=== PATIENT | female | born 1955 | race Caucasian/White ===

== ENCOUNTER 2018-01-14 13:44 | Emergency (ER) | payer OTHER ==
[~2018-01-14] VITALS: Ht 167.6 cm; Wt 70.3 kg
[2018-01-14] MEDS ORDERED: BACTRIM DS TAB1 EACH PO (13:57)
[2018-01-14] MEDS ORDERED: DOXYCYCLINE HY100 MG PO (14:41)
[2018-01-15] MEDS ORDERED: TYLENOL EXTRA500 MG PO (11:27)
[2018-01-15] MEDS ORDERED: ADVIL LIQUI-GE200 MG PO (11:28)
== END 2018-01-14 16:06 | disposition home or self-care (01) ==
LOC: ED 13:44
DX: L73.2 Hidradenitis suppurativa (principal); Z79.899 Other long term (current) drug therapy
CPT/HCPCS: 96374; 99283; J3370

== ENCOUNTER 2018-01-15 11:10 | Emergency (ER) | payer OTHER ==
[~2018-01-15] VITALS: Ht 167.6 cm; Wt 70.3 kg
[~2018-01-15 11:10] MED LIST: BACTRIM DS TAB1 EACH PO; DOXYCYCLINE HY100 MG PO
[2018-01-15] MEDS ORDERED: TYLENOL EXTRA500 MG PO (11:27)
[2018-01-15] MEDS ORDERED: ADVIL LIQUI-GE200 MG PO (11:28)
== END 2018-01-15 15:15 | disposition home or self-care (01) ==
LOC: ED 11:10
DX: L03.111 Cellulitis of right axilla (principal)
CPT/HCPCS: 36415; 80048; 96365; 99282; J3370

== ENCOUNTER 2018-01-17 16:19 | Emergency (ER) | payer OTHER ==
[~2018-01-17] VITALS: Ht 167.6 cm; Wt 70.3 kg
[~2018-01-17 16:19] MED LIST changes: +ADVIL LIQUI-GE200 MG PO; +TYLENOL EXTRA500 MG PO
--- NOTE | 2018-01-17 17:12 | NUR ---
Patient to ED for re-evaluation of axilla abscess. If ED physician has patient continue vancomycin, a vancomycin trough needs to be ordered and drawn. Technical Support Technician will call on-call pharmacist, Mandi, , with trough results, for continued dosing
== END 2018-01-17 20:23 | disposition home or self-care (01) ==
LOC: ED 16:19
DX: L02.411 Cutaneous abscess of right axilla (principal)
CPT/HCPCS: 10060; 96374; 96376; 99282; J1170

== ENCOUNTER 2022-04-27 15:05 | Emergency (ER) | payer OTHER ==
[~2022-04-27] VITALS: Ht 167.6 cm; Wt 71.2 kg
[~2022-04-27 15:05] MED LIST changes: +ATORVASTATIN CA10 MG PO; +NORCO 5-325 TA1 EACH PO
[2022-04-27] MEDS ORDERED: CLEOCIN HCL300 MG PO (16:29)
== END 2022-04-27 17:20 | disposition home or self-care (01) ==
LOC: ED 15:05
DX: L03.211 Cellulitis of face (principal); Z88.8 Allergy status to other drugs, medicaments and biological substances
CPT/HCPCS: 36415; 80048; 85025

== ENCOUNTER 2022-04-29 07:58 | Inpatient (IN) | payer OTHER ==
[~2022-04-29] VITALS: Ht 167.6 cm; Wt 72.1 kg
[~2022-04-29 07:58] MED LIST changes: +CLEOCIN HCL300 MG PO
--- OUTSIDE RECORDS SUMMARY | 2022-04-29 08:00 | XMS ---
PreManage Notification: [employer] [employer] Security Parent Trainer Events No recent Security Events currently on file CRITERIA MET - [facility] - 2 Visits in 30 Days CARE PROVIDERS There are no care providers on record at this time. Gustavo has no Care Guidelines for this patient. Vladimir VISIT COUNT (12 MO.) [address] [facility] TOTAL 2 NOTE: Visits indicate total known visits. ED/[facility] VISIT TRACKING (12 MO.) 04/29/2022 07:59 [facility] [place] TYPE: Emergency COMPLAINT: - FACIAL SWELLING 04/27/2022 15:05 [facility] [place] TYPE: Emergency COMPLAINT: - SWOLLEN BODY PART DIAGNOSES: - Cellulitis of face - Localized swelling, mass and lump, head - Allergy status to other drugs, medicaments and biological substances INPATIENT VISIT TRACKING (12 MO.) No inpatient visits to display in this time frame [id number]
--- NOTE | 2022-04-29 12:00 | NUR ---
THIS RN IN TO SEE PATIENT. GANGA FOOD SUPERVISOR HAS CHECKED PATIENT IN AND GOT HER SETTLED. PATIENT ADMIT ASSESSMENT COMPLETE. ASSESSMENT BEGNIGN EXCEPT FOR PATIENT'S FACIAL SWELLING AND REDNESS. PATIENT DENIES PAIN AND NAUSEA. IV INFUSING WNL. PATIENT'S LUNCH HAS BEEN ORDERED. PATIENT INDEPENDENT IN THE ROOM. CALL LIGHT IN REACH. PATIENT DENIES ANY OTHER CARE NEEDS AT THIS TIME. CALL LIGHT IS IN REACH.
[2022-04-29] MEDS ORDERED: DAILY VITE1 EAC1 PO (13:37)
[2022-04-29] MEDS ORDERED: FISH OIL 1,0001 EAC2 PO (13:37)
[2022-04-29] MEDS ORDERED: VITAMIN B-121000 MCG PO (13:38)
[2022-04-29] MEDS ORDERED: VITAMIN D325 MCG PO (13:38)
--- NOTE | 2022-04-29 13:39 | NUR ---
MED REC COMPLETE
--- NOTE | 2022-04-29 14:32 | NUR ---
PT ALERT, ORIENTED AND JUST FINISHING UP A CALL. PT IS PLEASANT, FAMILIAR TO ME. ND HAS HAD PREVIOUS ISSUE WITH CELLULITIS. GAVE ENCOURAGEMENT, G.POST AND BLESSING. AYANNA YU
--- NOTE | 2022-04-29 14:47 | NUR ---
THIS RN IN TO SEE PATIENT AND AFTERNOON ASSESMENT COMPLETE. PATIENT'S FACIAL CONDITION REMAINS UNCHANGED, BUT PATIENT DENIES PAIN AND NAUSEA. PATIENT INDEPENDENT IN ROOM AND VS ARE STABLE. PATIENT SAID SHE ATE VERY WELL FOR LUNCH AND IS OING TO TRY AND TAKE A NAP. CALL LIGHT IN REACH AND PATIENT DENIES ANY CARE NEEDS AT THIS TIME.
--- NOTE | 2022-04-29 16:10 | NUR ---
PATIENT JUS HAD SOME ROBERTSON DELIVERED TO HER. PATIENT HAS NO OTHER CARE NEEDS AT THIS TIME. CALL LIGHT IS IN REACH.
--- NOTE | 2022-04-29 17:04 | NUR ---
THIS RN IN TO CHECK ON PATIENT AND SHE IS BUSY ON HER PHONE AND WATCHING TV. PATIENT DENIES ANY CARE NEEDS AT THIS TIME. THIS RN DUMPED AND RECORDED THE URINE IN THE BATHROOM. PATIENT HAS TWO VISITIORS ARRIVING TO VISIT. PATIENT DENIES ANY CARE NEEDS AT THIS TIME AND IS AWAITING DINNER TO ARRIVE. CALL LIGHT IS IN REACH.
--- NOTE | 2022-04-29 19:29 | NUR ---
RECEIVED REPORT FROM DAY SHIFT RN. PATIENT IS RESTING IN BED. NO NEEDS AT THIS TIME. CALL LIGHT IN REACH.
--- NOTE | 2022-04-29 22:12 | NUR ---
PATIENT ASSESMENT COMPLETED. PATIENTS VITALS TAKEN AND RECORDED. INTKAE AND OUPUT RECORDED. PM MEDS GIVEN PER ORDER. PATIENT DENIES ANY PAIN IN HER FACIAL AREA ONLY MILD DISCOMFORT. PATIENT PROVIDED LOTION FOR FACE AND A COOL RAG. IV INFUSING PER ORDER. NO FURTHER NEEDS NOTED. CALL LIGHT IN REACH.
--- NOTE | 2022-04-30 00:22 | NUR ---
PATIENT GIVEN PRN SLEEP AID PER ORDER AND Pt REQUEST. PATIENT IS RESTING IN BED. IV INFUSING PER ORDER. NO FURTHER NEEDS NOTED. CALL LIGHT IN REACH.
--- NOTE | 2022-04-30 01:28 | NUR ---
PATIENT IS RESTING IN BED. VITALS TAKEN AND RECORDED. INTAKE AND OUTPUT RECORDED. PATIENT DENIES ANY PAIN. NO NEEDS NOTED. CALL LIGHT IN REACH. IV INFUSING PER ORDER.
--- NOTE | 2022-04-30 03:33 | NUR ---
PATIENT IS RESTING IN BED WITH EYES CLOSED, RR 17. CALL LIGHT IN REACH.
--- NOTE | 2022-04-30 05:26 | NUR ---
PATIENTS VITALS TAKEN AND RECORDED. INTAKE AND OUTPUT RECORDED. PATIENT DENIES ANY PAIN. IV INFUSING PER ORDER. PATIENT STATED "I FEEL LIKE THE SWELLING IN MY FACE IS BETTER". PATIENT CONTINUES TO HAVE REDDENED AREA UNDER BOTH EYES AND FROM THE TIP OF THE NOSE UP TO IN BETWEEN HER EYES. PATIENT PROVIDED WITH FRESH ICE WATER. NO FURTHER NEEDS NOTED. CALL LIGHT IN REACH.
--- NOTE | 2022-04-30 07:25 | NUR ---
HANDOFF REPORT RECEIVED FROM WEB OPERATIONS SPECIALIST RN.
--- NOTE | 2022-04-30 08:05 | NUR ---
PT UPRIGHT IN BED. WARM WASH CLOTH PROVIDED. ICE WATER REFRESHED. NO NEEDS AT THIS TIME. CALL LIGHT WITHIN REACH.
--- NOTE | 2022-04-30 09:40 | NUR ---
PT RESTING IN BED. PT RATES PAIN 0/10, DOES STATE SHE HAS SOME DISCOMFORT IN FACE, DENIES NEED FOR PAIN MEDICATION. PT ON ROOM AIR, LUNG SOUNDS CLEAR. PT TOLERATING REGULAR DIET, GOOD APPETITE. CMS INTACT, WITHOUT LE EDEMA. FACIAL SWELLING AND REDNESS PRESENT, SOME DRY PEELING SKIN AROUND NARES. PT INDEPENDENT IN ROOM. VOIDING QS. IV VANCO INFUSION STARTED. PT APPLIED BACTROBAN AND COMPLETED CHLOREHEXIDINE SWISH AND SPIT. PT DENIES OTHER NEEDS AT THIS TIME. DISCUSSED PLAN FOR PICC LINE, PT HOPING TO DISCHARGE LATER TODAY IF POSSIBLE, DISCUSSED NEED FOR ANTIBIOTICS THIS EVENING AND VANCO TROUGH TOMORROW MORNING.
--- NOTE | 2022-04-30 10:00 | NUR ---
Attempted to see pt on, staff in room. Will return later.
--- NOTE | 2022-04-30 10:40 | NUR ---
BEGAN VISITING WITH PT AND AUBRIE QUIROGA FROM [place] CAME TO VISIT WITH PT REGARDING HER CARE. WILL CHECK BACK
--- NOTE | 2022-04-30 11:52 | NUR ---
Received orders for pt to have OP antibiotics. Called DS and scheduled for tomorrow at 9 pm. Printed face sheet, ER note, H&P and hand delivered to Connie in DS. Miles ALFRED charge updated and will tell pt to return to the hospital tomorrow night at 9 pm for her first OP dose.
--- NOTE | 2022-04-30 13:36 | NUR ---
PT RESTING IN BED. VITALS AND IS AND OS COMPLETE. ICE WATER REFRESHED. NO FURTHER NEEDS. CALL LIGHT WITHIN REACH.
--- NOTE | 2022-04-30 13:48 | NUR ---
PT HAD UNISOM TABLET AT BEDSIDE, PLACED IN SAMPLE CUP AND GIVEN TO PHARMACIST CHEMO FOR VERIFICATION/ LABELING. PT VISITING WITH PIANO TEACHER.
--- NOTE | 2022-04-30 14:37 | NUR ---
PT ALERT, ORIENTED AND SITTING UP IN BED WORKING ON COMPUTER. VISITED WITH PT ABOUT HER INFECTIONS, DISCUSSED HOW SHE IS DEALING WITH IT AND VISITED ABOUT STRESS IN PT'S LIFE. PT BELIEVES SHE NEEDS TO MAKE SOME DECISIONS, GAVE HER ENCOURAGEMENT AND SUPPORT. PT REQUESTED PRAYER AND ANOTHER G.POST.
--- NOTE | 2022-04-30 15:10 | NUR ---
PT RESTING IN BED. NEW BAG OF NS HANGING AT 75ML/HR. PT DENIES NEEDS.
--- NOTE | 2022-04-30 17:32 | NUR ---
Spoke with pt and she states she remains in [place] in her house. No steps and no needs. Adult children will assist her as needed. OP IV antibiotics scheduled with DS to start tomorrow at 1930. Chart and order hand delivered. Pt plans on dc to home tomorrow, no needs.
--- NOTE | 2022-04-30 18:11 | NUR ---
PT AFEBRILE TODAY. CONTINUES TO HAVE FACIAL SWELLING AND REDNESS. IV VANCO INFUSED. PT RECEIVED MIDLINE TODAY. PT ON ROOM AIR, LUNG SOUNDS CLEAR. TOLERATING REGULAR DIET. VOIDING QS. INDEPENDENT IN ROOM. PLANNING FOR DISCHARGE WITH IV ABX THERAPY OUTPATIENT.
--- NOTE | 2022-04-30 18:28 | NUR ---
PT IN BED. VITALS AND IS AND OS TAKEN. NO NEEDS. CALL LIGHT WITHIN REACH
--- NOTE | 2022-04-30 19:29 | NUR ---
Patient resting comfortably in bed. Denies pain. Denies needs at this time. Call light within reach.
--- NOTE | 2022-05-01 01:26 | NUR ---
Patient sleeping in bed. Call light within reach.
--- NOTE | 2022-05-01 04:02 | NUR ---
Uneventful shift. Alert and oriented. Calls appropriately. Remains independent in room. Lung sounds clear bilat. Respirs even, unlabored. On RA. Infusing fluids at rate of 75. HR sounds reg. Bowel sounds active. Voiding appropriately. Face remains red and swollen. Patient denies pain. Denies difficulty breathing.
--- NOTE | 2022-05-01 08:30 | NUR ---
PT ASSESSMENT COMPLETED. LABS DRAWN FOR VANCO TROUGH AND BMP. IV FLUIDS RUNNING. MEDICATIONS ADMINISTERED. PT REPORTS REDNESS TO FACE HAS GREATLY IMPROVED. CALL LIGHT WITHIN REACH.
--- NOTE | 2022-05-01 09:57 | NUR ---
TO PT ROOM FOR MEDICATION ADMINISTRATION. PT IS A/O, RESPIRATIONS EVEN AND REGULAR. CALL LIGHT WITHIN REACH.
[2022-05-01] MEDS ORDERED: CHLORHEXIDINE473 ML MT (10:20)
[2022-05-01] MEDS ORDERED: MUPIROCIN22 GM NAS (10:20)
[2022-05-01] MEDS ORDERED: VANCO 1.251.25 GM/25 IV (10:47)
[2022-05-01] MEDS ORDERED: UNISOM25 MG PO (10:58)
--- NOTE | 2022-05-01 11:15 | NUR ---
PT DISCHARGED. IV REMOVED, CATHETER INTACT.
--- NOTE | 2022-05-01 12:52 | NUR ---
CONNECTED WITH PT AT [place]. PLEASED TO BE HEADED HOME THANKED STAFF FOR THE CARE SHE RECEIVED. GAVE BLESSING
== END 2022-05-01 11:15 | disposition home or self-care (01) | DRG 603 ==
LOC: ED 07:58 → MS 10:44
PROVIDERS: ADMIT Internal Medicine; ATTEND Internal Medicine
PROC: 02HV33Z Insertion of Infusion Device into Superior Vena Cava, Percutaneous Approach (ICD-10-PCS; principal; 2022-04-29)
DX: L03.211 Cellulitis of face (principal); B95.62 Methicillin resistant Staphylococcus aureus infection as the cause of diseases classified elsewhere; H92.01 Otalgia, right ear; Z20.822 Contact with and (suspected) exposure to COVID-19; Z98.890 Other specified postprocedural states; Z87.2 Personal history of diseases of the skin and subcutaneous tissue; Z88.8 Allergy status to other drugs, medicaments and biological substances; Z79.2 Long term (current) use of antibiotics
CPT/HCPCS: 36415; 36569; 70487; 80048; 80053; 80202; 85025; 87502; C1751; C9803; J3370; J7030; J7060; Q9967; U0003